=== PATIENT | male | born 1975 | race Caucasian/White ===

== ENCOUNTER 2022-02-23 17:06 | Emergency (ER) | payer OTHER ==
[2022-02-23] MEDS ORDERED: ACETAMINOPHEN 1000 MG/100 ML BAG IVPB ONE (17:28)
[2022-02-23] MEDS ORDERED: METOCLOPRAMIDE HCL INJECTION 10 MG/2 ML VIAL IVPB ONE (17:28)
[2022-02-23] MEDS ORDERED: SODIUM CHLORIDE 1,000 ML IV STA (17:28)
[2022-02-23] MEDS ORDERED: METOCLOPRAMIDE HCL INJECTION 10 MG/2 ML VIAL ONE (17:30)
[2022-02-23] MEDS ORDERED: ACETAMINOPHEN INJECTION 100 ML IVPB ONE (17:30)
[2022-02-23 17:39] VITALS: TEMP 97.5; BMI 19.8
[2022-02-23 17:57] LABS: HEMATOCRIT 46.1 % (35.4-49); HEMOGLOBIN 16.2 G/dL (11.7-16.9); MCHC 35.2 g/dl (32.0-35.9); MEAN CELL VOLUME 88.2 fl (80-96); MEAN PLT VOLUME 7.6 fl (7.5-11.1); PLATELET COUNT 318.3 10^3/uL (134-434); RBC 5.23 10^6/uL (4.00-5.60); RDW 13.5 % (11.9-15.9); WHITE BLOOD COUNT 10.9 10^3/uL (4.0-10.8)
[2022-02-23 18:18] LABS: INR 1.17 (0.83-1.09); PROTHROMBIN TIME (PATIENT) 13.5 SEC (9.7-13.0)
[2022-02-23 18:24] LABS: ALBUMIN 5.1 g/dl (3.4-5.0); BILIRUBIN,TOTAL 0.8 mg/dl (0.2-1); CALCIUM 9.9 mg/dl (8.5-10); CREATININE 0.9 mg/dl (0.55-1.3); TOT PROT 7.9 g/dl (6.4-8.2)
[2022-02-23 18:41] LABS: PLATELET ESTIMATE ADEQUATE
[2022-02-23 21:39] VITALS: RESP 16
[2022-02-23 22:54] VITALS: BP 115/89; PULSE 76
== END 2022-02-23 23:38 | disposition short-term general hospital (02) ==
LOC: FER 17:06
PROC: 3E033GC Introduction of Other Therapeutic Substance into Peripheral Vein, Percutaneous Approach (ICD-10-PCS; principal; 2022-02-23)
DX: I60.9 Nontraumatic subarachnoid hemorrhage, unspecified (principal)
CPT/HCPCS: 0241U-QW; 36415; 70450-TC; 70496-TC; 71045-TC-FY; 80053; 85027; 85610; 93005; 99285-25; Q9967